=== PATIENT | female | born 1955 | race Caucasian/White ===

== ENCOUNTER 2017-08-04 10:56 | Emergency (ER) | payer SELFPAY ==
[~2017-08-04] VITALS: Ht 162.6 cm; Wt 64.0 kg
[2017-08-04] MEDS ORDERED: IBUPROFEN 600MG TABLET PO ONE (15:45)
[2017-08-04 19:24] VITALS: BP 158/80
== END 2017-08-04 19:26 | disposition home or self-care (01) ==
LOC: ER 11:07
DX: M17.0 Bilateral primary osteoarthritis of knee (principal); I10 Essential (primary) hypertension
CPT/HCPCS: 73560; 82962; 99284